=== PATIENT | female | born 1985 | race Caucasian/White ===

== ENCOUNTER 2019-02-16 07:10 | Emergency (ER) | payer MEDICARE, MEDICAID, SELFPAY ==
[2019-02-16 07:16] VITALS: BP 138/91; PULSE 75; RESP 14; TEMP 36.8; O2SAT 95
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
[2019-02-16] MEDS: Ibuprofen 800 MG TAB PO (07:28)
[2019-02-16] MEDS: Acetaminophen 500 MG TAB 1000 MG PO (07:28)
[2019-02-16] MEDS: Lidocaine 5% Patch 1 PATCH TP (07:29)
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
== END 2019-02-16 08:41 | disposition home or self-care (01) ==
LOC: ER 08:24
PROVIDERS: Emergency Provider Emergency Medicine
DX: M25.512 Pain in left shoulder (principal); G89.29 Other chronic pain; Z87.828 Personal history of other (healed) physical injury and trauma
CPT/HCPCS: 99284; 73030; 73200; L3650

== ENCOUNTER 2020-03-16 13:30 | Emergency (ER) | payer MEDICARE, MEDICAID, SELFPAY ==
[2020-03-16 13:35] VITALS: BP 134/61; PULSE 77; RESP 16; TEMP 36.7; O2SAT 99
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
[2020-03-16] MEDS: predniSONE 20 MG TAB 60 MG PO (14:05)
== END 2020-03-16 14:15 | disposition home or self-care (01) ==
PROVIDERS: Emergency Provider Emergency Medicine
DX: M75.32 Calcific tendinitis of left shoulder (principal)
CPT/HCPCS: 99283; J7512

== ENCOUNTER 2020-05-03 10:27 | Emergency (ER) | payer MEDICARE, MEDICAID, SELFPAY ==
[2020-05-03] VITALS (38 sets, daily range): BP systolic 107–142; BP diastolic 57–100; PULSE 46–74; RESP 11–22; TEMP 36.9; O2SAT 97–100
--- NOTE | 2020-05-03 10:30 | RT.EKG_ITS ---
APPROVED REPORT Exam: Resting ECG Patient Location: E HR:61 bpm ECG Measurements Heart Rate 61 AXIS DE 163 P 71 QRSd 90 QRS 74 QT 427 T 69 QTc 430 Conclusion Sinus rhythm...normal P axis, V-rate 60- 99 I have reviewed and interpreted ECG and agree with software generated interpretation.
--- NOTE | 2020-05-03 10:32 | W.ED.GENAD ---
Discharge Plan Disposition Patient Disposition: HOME Condition: Improving Discharge Details Clinical Impression: Dizziness, Gastritis, History of gastroesophageal reflux (GERD) Primary Care Provider: María Delacruz ED Provider: Dyan Camejo Home Meds and New Rx's Prescriptions: New sucralfate [Carafate] 1 gram tablet 1 gm PO QACHS Qty: 30 RF: 0 famotidine [Pepcid] 20 mg tablet 20 mg PO DAILY Qty: 14 RF: 0 Continued cholecalciferol (vitamin D3) [Vitamin D3] 2,000 unit Tablet 2,000 unit PO DAILY RF: 0 Discharge Instructions Instructions: Gastritis (ED), Dizziness (ED) Additional Instructions: Drink plenty of fluids and get plenty of rest. Your prescriptions have been sent electronically to your pharmacy. Call the pharmacy to make sure your prescriptions are ready before pickup. Take the prescriptions as directed. Take the Pepcid and Carafate as directed. Call the general surgery office today to schedule a follow-up appointment for reevaluation in the next week and for consideration for outpatient upper endoscopy for further evaluation of your gastritis and to rule out a possible peptic ulcer. Return immediately to the emergency department if you develop any worsening or new concerning symptoms. Referrals: Carolyne Johns DO [OSTEOPATHIC DOCTOR] - Discharge Data Discharge Physician: yDan Camejo Medical Decision Making 34-year-old female who is a tobacco smoker with a history of GERD who presents with lightheadedness for 2 months and burning chest and epigastric pain, belching and gagging when drinking water for the past 2 weeks. EKG on arrival notes a rate of 61, sinus, no STEMI, nondiagnostic. Vitals within normal limits. Lungs clear. She has tenderness across the epigastrium, right upper quadrant, left upper quadrant but without rigidity or guarding. No focal deficits. Orthostats done at bedside and negative. Differential diagnosis includes dehydration, electrolyte abnormality, arrhythmia, GERD, PUD, gastritis, PE, etc. Will place an IV, bolus IV fluids, screening labs, CT head to rule out acute neurologic process, CT chest abdomen and pelvis to rule out PE or acute GI abnormality. We will also give a dose of Pepcid and Carafate and reassess. She has an allergy to lidocaine so we will hold on GI cocktail. CT head negative. CT chest negative. CT abdomen notes some thickening of the gastric wall which may be seen in gastritis. Patient was able to eat and drink here and felt much better and denied any dizziness or pain at this time. Patient is requesting to go home. She states she has had a previous reaction to Prilosec in the past. Prescription for Pepcid and Carafate sent to her pharmacy electronically. Patient placed on surgery follow-up list for reevaluation and consideration for upper endoscopy if symptoms not improve or worsen. Usual and customary return precautions given prior to discharge. Medical Records Medical records reviewed: Yes I reviewed the patient's medical records. Imaging Data Radiologic Study: Radiologist's impression: CT HEAD WO CLINICAL HISTORY: dizziness, r/o acute disease. TECHNIQUE: Imaging Protocol: Axial computed tomography images with coronal and sagittal reformatted images were created and reviewed COMPARISON: No exams were available for comparison FINDINGS: The ventricular system is normal in appearance. No evidence of acute intracranial hemorrhage, mass effect, or midline shift. The orbital structures are unremarkable. The temporal bone structures appear intact. Calvarium: Normal. Visualized Paranasal sinuses/Mastoids: Clear. IMPRESSION: Normal cranial CT. CT CHEST PE ABD PELVIS W TECHNIQUE: CT angiography of the chest, was performed with bolus infusion of 100 cc of Omnipaque 350 followed by scanning of the abdomen and pelvis. Axial CT angiography was performed with multi-slice acquisition and multi-planar and/or 3D reconstructions. COMPARISON: No exams were available for comparison FINDINGS: The lungs are clear. No pleural effusion. No evidence of pulmonary embolic disease. No thoracic aortic dissection or aneurysm. Major branches of the thoracic aorta appear normal. No pleural effusion. No mediastinal or hilar adenopathy. Tracheobronchial tree appears intact. There is question diffuse gastric wall thickening, this is questionable finding due to underdistention but the possibility of gastritis is not excluded. Please correlate clinically. No focal hepatic abnormality seen apart from a few low-attenuation subcentimeter masses with appearance consistent with cysts. Gallbladder and bile ducts are CT normal. Pancreas is unremarkable. Spleen shows unremarkable early arterial phase pattern of enhancement. There are tiny bilateral nonobstructing renal calculi. Otherwise the kidneys appear normal. No abdominal aortic aneurysm or dissection. Major branches of the abdominal aorta appear normal. No abdominal or pelvic adenopathy. Appendix is not specifically visualized but there is no evidence of appendicitis or diverticulitis.. No significant abdominal wall hernia. No focal bowel pathology. Bushwalking Guide structures are unremarkable with an IUD in place in the uterine midline. IMPRESSION: Question gastric wall thickening which could indicate gastritis. Otherwise no evidence of acute abnormality of the chest, abdomen or pelvis. Nonobstructing renal calculi are noted bilaterally. Lab Data Lab results reviewed: Yes I reviewed the patient's lab results. Labs: Laboratory Tests Range/Units 05/03/20 05/03/20 05/03/20 10:34 10:40 10:40 WBC (4.4-10.8) 10^3/uL 9.46 RBC (3.93-5.22) 10^6/uL 4.86 Hgb (11.2-15.7) g/dL 14.9 Hct (36.0-46.0) % 44.6 MCV (80-95) fL 91.8 MCH (27.0-33.0) pg 30.7 MCHC (32.0-36.0) % 33.4 RDW (11.7-14.6) % 12.5 Plt Count (130-400) 10^3/uL MPV (8.0-11.0) fL 10.3 Immature Gran % 0.2 Neutrophils % 56.0 Lymphocytes % 35.9 Monocytes % 4.0 Eosinophils % 3.5 Basophils % 0.4 Nucleated RBC % % 0 Absolute Neutrophils (1.2-6.7) 10^3/uL 5.29 Absolute Lymphocytes (1.2-3.4) 10^3/uL 3.40 Absolute Monocytes (0.1-0.8) 10^3/uL 0.38 Absolute Eosinophils (0.0-0.7) 10^3/uL 0.33 Absolute Basophils (0.0-0.2) 10^3/uL 0.04 Sodium (136-145) mmol/L 141 Potassium (3.5-5.1) mmol/L 3.2 L Chloride (98-107) mmol/L 101 Carbon Dioxide (21.0-32.0) mmol/L 31.6 Anion Gap (3-11) mmol/L 8.4 BUN (7-18) mg/dL 7 Creatinine (0.55-1.02) mg/dL 0.9 Estimated GFR/1.73 m2 (mL/min/1.73m2) >= 60.00 Glucose (74-106) mg/dL 105 Calcium (8.5-10.1) mg/dL 9.2 Total Bilirubin (0.2-1.0) mg/dL 0.7 AST (15-37) U/L 15 ALT (14-59) U/L 25 Alkaline Phosphatase (46-116) U/L 93 Total Protein (6.4-8.2) g/dL 8.2 Albumin (3.4-5.0) g/dL 4.4 Urine Color (Yellow) Yellow Urine Clarity (Clear) Sl cloudy Urine pH (5-8) 7.5 Ur Specific [place] (1.005-1.025) 1.025 Urine Protein (Negative) mg/dL Negative Urine Ketones (Negative) mg/dL Negative Urine Blood (Negative) Small H Urine Nitrite (Negative) Negative Urine Bilirubin (Negative) Negative Urine Urobilinogen (Up TO 0.2) EU/dL 0.2 Ur Leukocyte Esterase (Negative) Negative Urine RBC (0-2) HPF 10-20 H Urine WBC (0-5) HPF 0-2 Ur Epithelial Cells (Negative) HPF Many Urine Crystals (Negative) HPF Negative Urine Bacteria (Negative) HPF Rare Urine Casts (Negative) LPF Negative Urine Mucus (Negative) Trace Ur Culture Indicated? No/sq. contamination Urine Glucose (Negative) mg/dL Negative ECG Data Attestation: I personally reviewed and interpreted this ECG (s) as follows: Interpretation: Rate of 61, sinus, no acute ST elevation or depression. CO 163 QRS 90. QTc 430. HPI General Mode of arrival: ambulatory. Date/Time Provider Initiated Documentation: 05/03/20 10:28. Limitations to Documentation: no limitations. Information obtained by: patient. HPI Narrative: Patient is a 34-year-old female who is a tobacco smoker presents to the ED with complaint of chronic lightheadedness for the past 2 months. Patient states the dizziness is constant but worse upon standing. She states this feels more consistent with lightheadedness rather than a spinning sensation. She states she does feel at rest and when sitting down but always worse upon standing or moving her head. She denies any headache, visual changes, vomiting, extremity weakness or numbness or speech changes. She states she has had poor appetite since she was little and states this is no worse than usual. She does admit to worsening of her GERD with indigestion, belching, and occasional burning chest and epigastric pain for the past 2 weeks. She states she is able to eat normally and drink coffee but is having trouble sipping water and states that it comes back. She denies known fever, palpitations, sharp chest pain, shortness of breath, change in bowel habits or urinary symptoms. She denies any new medications. She smokes tobacco and occasional marijuana but denies any alcohol use. She states she also has a Mirena and does not get periods. She denies any sources of bleeding such as hematemesis, hematuria, menorrhagia or hematochezia. Related Data Home Medications Medication Instructions Recorded Confirmed cholecalciferol (vitamin D3) 2,000 unit PO DAILY 02/16/19 05/03/20 [Vitamin D3] famotidine [Pepcid] 20 mg PO DAILY #14 tab 05/03/20 sucralfate [Carafate] 1 gm PO QACHS #30 tab 05/03/20 Previous Rx's Medication Instructions Recorded famotidine [Pepcid] 20 mg PO DAILY #14 tab 05/03/20 sucralfate [Carafate] 1 gm PO QACHS #30 tab 05/03/20 Allergies Allergy/AdvReac Type Severity Reaction Status Date / Time lidocaine AdvReac Unverified 05/03/20 10:44 General KIAH: 4 Review of Systems All systems reviewed & are unremarkable except as noted in HPI and below Constitutional Constitutional: Reports as per HPI, Denies chills and Denies fever(s) Eyes Eyes: Denies blurry vision ENT Ears, Nose, Mouth, and Throat: Reports dizziness, Denies sore throat and Denies throat swelling Cardiovascular Cardiovascular: Reports chest pain and Denies dyspnea Respiratory Respiratory: Denies cough and Denies dyspnea Gastrointestinal Gastrointestinal: Reports abdominal pain, Denies diarrhea, Reports nausea and Denies vomiting Genitourinary Genitourinary: Denies hematuria and Denies dysuria Musculoskeletal Musculoskeletal: Denies back pain and Denies numbness Integumentary/Breasts Skin/Breast: Denies lesions and Denies rash Neurologic Neurologic: Reports dizziness, Denies localized weakness and Denies numbness Allergic/Immunologic Allergic/Immunologic: Denies throat swelling [facility] Medical History (Updated 05/03/20 @ 13:51 by Dyan Camejo DO) GERD (gastroesophageal reflux disease) Surgical History (Updated 05/03/20 @ 11:36 by Dyan Camejo DO) Ganglion cyst of dorsum of right wrist Cystectomy History of bilateral tubal ligation Social History Smoking/Tobacco Use Status: Current every day Tobacco Type: cigarettes Smoking risk assessment performed?: Yes Alcohol Intake: never Drug use: Daily Substance use type: marijuana Do you feel safe at home: Yes Do you feel safe in your relationship?: Yes Exam Const General: cooperative and healthy appearing Orientation: alert and awake HENMT Head: normal to inspection Ears: hearing grossly normal bilaterally, external ears normal and TM's normal bilaterally General nose exam: external nose normal Face and sinus: normal facial exam Mouth: oral mucosae normal Teeth and gingiva: edentulous Throat: posterior oropharynx normal Eyes General: appearance normal, both eyes and all related structures Eyelids: eyelids normal Pupils: PERRL EOM: EOM intact bilaterally Neck Neck: normal visual inspection Lymphatic: no lymphadenopathy noted Chest Chest: normal inspection of the chest Resp Effort & Inspection: normal respiratory effort and able to speak in complete sentences Auscultation: clear to auscultation bilaterally Cardio Rate: regular rate Rhythm: regular rhythm GI Inspection: normal to inspection Palpation: soft, not firm, no guarding, no hepatosplenomegaly, no masses and tender in the epigastrum, in the LUQ and in the RUQ Auscultation: hypoactive bowel sounds Skin General skin exam: no rashes or lesions noted Neuro General: patient alert and patient awake Cranial Nerves: CN's II-XI intact bilaterally Cognition: normal cognition Speech: speech normal Gait: normal gait Motor: muscle tone normal throughout and strength 5/5 throughout Sensory Exam: no sensory deficits noted Extrem General: normal to inspection, full ROM and capillary refill normal Psych Appearance: grossly normal Mental Status: mental status grossly normal Speech and Movement: speech and movement normal Affect: normal affect Thought Process: normal
[2020-05-03 10:41] LABS: Bilirubin Negative (Negative); Blood Small (Negative); Clarity Sl Cloudy (Clear); Glucose Negative (Negative); Ketones Negative (Negative); Leukocyte Esterase Negative (Negative); Nitrite Negative (Negative); Specific Gravity 1.025 (1.005-1.025); Urobilinogen 0.2 EU/dL (Up TO 0.2); pH 7.5 (5-8)
[2020-05-03] MEDS: Normal Saline 1,000 ML 1000 ML IV ×2 (10:45→12:22)
[2020-05-03 10:47] LABS: Bacteria Rare HPF (Negative); C & S Indicated? No/Sq. Contamination; Casts Negative LPF (Negative); Crystals Negative HPF (Negative); Epithelial Cells Many HPF (Negative); Mucus Trace (Negative); WBC 0-2 HPF (0-5)
[2020-05-03 10:48] LABS: Abs Immature Grans 0.02 10^3/uL (0.0-0.06); Absolute Basophil Count 0.04 10^3/uL (0.0-0.2); Absolute Eosinophil Count 0.33 10^3/uL (0.0-0.7); Absolute Monocyte Count 0.38 10^3/uL (0.1-0.8); Absolute Neutrophil Count 5.29 10^3/uL (1.2-6.7); Basophils % 0.4; Eosinophils % 3.5; HCT 44.6 % (36.0-46.0); HGB 14.9 g/dL (11.2-15.7); Immature Grans % 0.2; Lymphocytes % 35.9; MCH 30.7 pg (27.0-33.0); MCHC 33.4 % (32.0-36.0); MCV 91.8 fL (80-95); MPV 10.3 fL (8.0-11.0); Nucleated RBC 0 %; RBC 4.86 10^6/uL (3.93-5.22); RDW 12.5 % (11.7-14.6); RDW-SD 42.3 fL; WBC 9.46 10^3/uL (4.4-10.8)
[2020-05-03 10:59] LABS: ALT 25 U/L (14-59); AST 15 U/L (15-37); Albumin 4.4 g/dL (3.4-5.0); Alkaline Phosphatase 93 U/L (46-116); Anion Gap 8.4 mmol/L (3-11); BUN 7 mg/dL (7-18); Bilirubin, Total 0.7 mg/dL (0.2-1.0); CO2 31.6 mmol/L (21.0-32.0); CREATININE 0.9 mg/dL (0.55-1.02); Calcium 9.2 mg/dL (8.5-10.1); Chloride 101 mmol/L (98-107); Glucose 105 mg/dL (74-106); Potassium 3.2 mmol/L (3.5-5.1); Sodium 141 mmol/L (136-145); Total Protein 8.2 g/dL (6.4-8.2)
--- NOTE | 2020-05-03 11:00 | DI.CT_ITS ---
EXAM: CT CHEST PE ABD PELVIS W TECHNIQUE: CT angiography of the chest, was performed with bolus infusion of 100 cc of Omnipaque 350 followed by scanning of the abdomen and pelvis. Axial CT angiography was performed with multi-slice acquisition and multi-planar and/or 3D reconstruc tions. COMPARISON: No exams were available for comparison FINDINGS: The lungs are clear. No pleural effusion. No evidence of pulmonary embolic disease. No thoracic aort ic dissection or aneurysm. Major branches of the thoracic aorta appear normal. No pleural effusion. No mediastinal or hilar adenopathy. Tracheobronchial tree appears intact. There is question diffuse gastric wall thickening, this is questionable finding due to underdistentio n but the possibility of gastritis is not excluded. Please correlate clinically. No focal hepatic abnormality seen apart from a few low-attenuation subcentimeter masses with appearan ce consistent with cysts. Gallbladder and bile ducts are CT normal. Pancreas is unremarkable. Spleen shows unremarkable early arterial phase pattern of enhancement. There are tiny bilateral nonobstructing renal calculi. Otherwise the kidneys appear normal. No abdominal aortic aneurysm or dissection. Major branches of the abdominal aorta appear normal. No a bdominal or pelvic adenopathy. Appendix is not specifically visualized but there is no evidence of a ppendicitis or diverticulitis.. No significant abdominal wall hernia. No focal bowel pathology. Flotation Tender Helper structures are unremarkable with an IUD in place in the uterine midline. IMPRESSION: Question gastric wall thickening which could indicate gastritis. Otherwise no evidence of acute abno rmality of the chest, abdomen or pelvis. Nonobstructing renal calculi are noted bilaterally. RADIATION DOSE DELIVERED: 1,265.21mGy.cm Total DLP 1,265.21mGy.cm Total DLP DATA REPOSITORY: All CT scans at this facility are submitted to the National Radiology Data Registry (NRDR) Dose Index Registry (DIR) with the [employer] ([employer]). RADIATION OPTIMIZATION: All CT scans at this facility use at least one of these dose optimization te chniques: automated exposure control; mA and/or kV adjustment per patient size (includes targeted exa ms where dose is matched to clinical indication); or iterative reconstruction.
--- NOTE | 2020-05-03 11:00 | DI.CT_ITS ---
EXAM: CT HEAD WO CLINICAL HISTORY: dizziness, r/o acute disease. TECHNIQUE: Imaging Protocol: Axial computed tomography images with coronal and sagittal reformatted images were created and reviewed COMPARISON: No exams were available for comparison FINDINGS: The ventricular system is normal in appearance. No evidence of acute intracranial hemorrhage, mass effect, or midline shift. The orbital structures are unremarkable. The temporal bone structures appear intact. Calvarium: Normal. Visualized Paranasal sinuses/Mastoids: Clear. IMPRESSION: Normal cranial CT. RADIATION DOSE DELIVERED: 727.96mGy.cm Total DLP 727.96mGy.cm Total DLP DATA REPOSITORY: All CT scans at this facility are submitted to the National Radiology Data Registry (NRDR) Dose Index Registry (DIR) with the [employer] (ACR). RADIATION OPTIMIZATION: All CT scans at this facility use at least one of these dose optimization te chniques: automated exposure control; mA and/or kV adjustment per patient size (includes targeted exa ms where dose is matched to clinical indication); or iterative reconstruction.
[2020-05-03] MEDS: Sucralfate 1 GM TAB PO (11:20)
[2020-05-03] MEDS: FAMOTIDINE 20 MG/50 ML BAG 200 MG IVPB (11:20)
[2020-05-03] MEDS: Potassium Chloride 20 MEQ TABCR 40 MEQ PO (11:33)
[2020-05-03] MEDS: Omnipaque 350 MG/ML 100 ML BTL IV (11:47)
[2020-05-03] MEDS: Normal Saline - Diluent 50 ML VIAL IV (11:47)
--- NOTE | 2020-05-03 14:22 | NUR.NOTE ---
referral faxed to surgery for follow up care regarding ER visit as requested by Dr. Camejo. Nursing Note:
== END 2020-05-03 14:10 | disposition home or self-care (01) ==
PROVIDERS: Emergency Provider Physician Assistant; PCP Nurse Practitioner Adult Health
DX: R42 Dizziness and giddiness (principal); K29.60 Other gastritis without bleeding; K21.9 Gastro-esophageal reflux disease without esophagitis
CPT/HCPCS: 71275; 74177; 80053; 81025; 93005; 96361; 96365; 99285; 70450; 81003; 81015; 85025; 93010; 99283; J3490

== ENCOUNTER 2022-02-03 14:51 | Emergency (ER) | payer MEDICARE, MEDICAID, SELFPAY ==
[2022-02-03 14:54] VITALS: BP 116/46; PULSE 54; RESP 18; TEMP 36.6; O2SAT 100
--- NOTE | 2022-02-03 15:00 | DI.RAD_ITS ---
Exam(s) XR SCAPULA LT EXAM: XR SCAPULA LT CLINICAL HISTORY: Pain. TECHNIQUE: 2D digital imaging was performed. COMPARISON: CR XR SHOULDER LT COMPLETE 2+V from 02/03/2022 FINDINGS: Two views: No evidence of scapular fracture. No scapular lesion evident. No adjacent rib findings. Ipsilatera l clavicle and acromion appear intact. Visualized coracoid process appears intact. No obvious degen erative changes in the glenohumeral joint. IMPRESSION: No significant radiographic findings in the scapula. DATA REPOSITORY: RADIATION DOSE DELIVERED:
--- NOTE | 2022-02-03 15:00 | DI.RAD_ITS ---
Exam(s) XR SHOULDER LT COMPLETE 2+V EXAM: XR SHOULDER LT COMPLETE 2+V CLINICAL HISTORY: Left shoulder blade pain. TECHNIQUE: 2D digital imaging was performed. COMPARISON: CR XR SHOULDER LT COMPLETE 2+V from 02/16/2019 FINDINGS: No evidence of acute fracture or dislocation. There are degenerative subarticular cyst in the latera l aspect humeral head again noted. Mild deformity at the greater tuberosity level may reflect prior fracture at this level. There is also a 3 millimeter calcific density in the soft tissues again note d just above the greater tuberosity which is probably consistent with calcific tendinitis. No other soft tissue calcifications evident. No glenohumeral joint space narrowing. Ipsilateral chromium an Silvestre and AC joint appear unremarkable. IMPRESSION: Greater tuberosity level findings as described above. Correlation with any prior injury at this leve l recommended. DATA REPOSITORY: RADIATION DOSE DELIVERED:
--- NOTE | 2022-02-03 15:10 | W.ED.GENAD ---
Discharge Plan Disposition Patient Disposition: Home Condition: Stable Discharge Details Clinical Impression: Calcific tendinitis of left shoulder Primary Care Provider: María Delacruz ED Provider: Kylie Nelson Home Meds and New Rx's Prescriptions: New cyclobenzaprine 10 mg tablet 10 mg PO TID PRN (Reason: muscle spasm) Qty: 7 0RF Rx Instructions: Please take 1 tablet up to 3 times daily as needed No Action sucralfate [Carafate] 1 gram tablet 1 gm PO QACHS Qty: 30 0RF famotidine [Pepcid] 20 mg tablet 20 mg PO DAILY Qty: 14 0RF Discharge Instructions Instructions: Tendinitis (ED) Additional Instructions: Alternate ice and heat. Please take the muscle relaxer as prescribed. You may try [id number] IcyHot or similar. Please take Tylenol or Ibuprofen with food every 4-6 hours as needed for pain and swelling. Follow up with primary care provider in 3-5 days. Return to ED sooner if any worsening or concerns. Increase oral fluids. Referrals: María Delacruz [Primary Care Provider] - 5 days Medical Decision Making No obvious deformity noted, she is tender with palpation over the scapula, no crepitus or step-off noted, I do suspect musculoskeletal or muscle pain however will order an x-ray to rule out underlying injury. Flexeril ordered for muscle relaxant. X-rays noted to have calcific tendinitis. Patient given Flexeril to go and a prescription for 7 tablets. Patient is allergic to lidocaine so injection was not done. I did consider lidocaine patches but however patient is allergic to lidocaine. Instructed to follow-up. This text was generated using BYTEGRIDation system, please disregard any oddities of phrase or misspellings. HPI General Mode of arrival: ambulatory. Date/Time Provider Initiated Documentation: 02/03/22 15:03. Limitations to Documentation: no limitations. Information obtained by: patient, RN notes reviewed and old records reviewed. HPI Narrative: -year-old female presents to the ER with chief complaint of left shoulder pain shoulder blade pain for over a week. She reports that it hurts to breathe, denies any cough fever sore throat or URI type symptoms. She is a smoker. She denies any known injury however she is a housekeeper/custodian/laundry worker. Past medical history includes GERD. she has been taking Tylenol with little to no relief. Related Data Home Medications Medication Instructions Recorded Confirmed famotidine 20 mg tablet (Pepcid) 20 mg PO DAILY #14 tabs 05/03/20 02/03/22 sucralfate 1 gram tablet (Carafate) 1 gm PO QACHS #30 tabs 05/03/20 02/03/22 cyclobenzaprine 10 mg tablet 10 mg PO TID PRN muscle spasm #7 02/03/22 tabs Previous Rx's Medication Instructions Recorded famotidine 20 mg tablet (Pepcid) 20 mg PO DAILY #14 tabs 05/03/20 sucralfate 1 gram tablet (Carafate) 1 gm PO QACHS #30 tabs 05/03/20 cyclobenzaprine 10 mg tablet 10 mg PO TID PRN muscle spasm #7 02/03/22 tabs Allergies Allergy/AdvReac Type Severity Reaction Status Date / Time lidocaine AdvReac Unverified 02/03/22 15:18 General Stated Complaint: Orthopedic KIAH: 4 Review of Systems All systems reviewed & are unremarkable except as noted in HPI and below Musculoskeletal Musculoskeletal: Reports as per HPI, Reports back pain, Denies deformity, Reports arthralgias, Denies loss of height, Denies numbness and Denies radiating pain into limb Neurologic Neurologic: Denies numbness PFSH All Active Problems (Updated 02/03/22 @ 16:03 by Kylie Nelson NP) Dizziness (Acute) Gastritis (Acute) History of gastroesophageal reflux (GERD) (Acute) Calcific tendinitis of left shoulder (Acute) Medical History GERD (gastroesophageal reflux disease) Surgical History Ganglion cyst of dorsum of right wrist Cystectomy History of bilateral tubal ligation Social History Smoking/Tobacco Use Status: Current every day Tobacco Type: cigarettes Smoking risk assessment performed?: Yes Alcohol Intake: never Drug use: Daily Substance use type: marijuana Do you feel safe at home: Yes Do you feel safe in your relationship?: Yes Exam Resp Effort & Inspection: normal respiratory effort, able to speak in complete sentences and no audible wheezes Auscultation: clear to auscultation bilaterally Cardio Rate: regular rate Rhythm: regular rhythm Heart Sounds: S1 normal and S2 normal Back/Spine/Pelvis Back: no CVA tenderness Cervical Spine: normal cervical lordosis Thoracic/Lumbar Spine: thoracic and lumbar spine normal to inspection Extrem General: normal to inspection and capillary refill normal Right upper extremity: normal to inspection and full ROM Left upper extremity: normal to inspection, normal capillary refill, no joint enlargement and shoulder/upper arm Details: tenderness Location: of the A-C joint, of the scapula and over the coracoid process and axillary nerve sensory function normal; no abrasions, no lacerations, no ecchymosis, no crepitus, no foreign bodies, no penetrating wound, no deformity and no unsual warmth Course Vital Signs Vital signs: Vital Signs Temperature 36.6 C 02/03/22 14:54 Pulse 54 L 02/03/22 14:54 Respiratory Rate 18 02/03/22 14:54 Blood Pressure 116/46 L 02/03/22 14:54 Pulse Oximetry 100 02/03/22 14:54 Temperature 36.6 C 02/03/22 14:54 Temperature Source Temporal Artery Scan 02/03/22 14:54 Pulse 54 L 02/03/22 14:54 Respiratory Rate 18 02/03/22 14:54 Respiratory Effort Non-Labored 02/03/22 14:58 Blood Pressure 116/46 L 02/03/22 14:54 Pulse Oximetry 100 02/03/22 14:54 Pain Level 10 02/03/22 14:54
[2022-02-03] MEDS: Cyclobenzaprine 10 MG TAB PO (15:19)
[2022-02-03] MEDS: Cyclobenzaprine 10 MG TAB, 3 TABS/BTL PO (16:12)
== END 2022-02-03 16:17 | disposition home or self-care (01) ==
PROVIDERS: Emergency Provider Registered Nurse Emergency; PCP Nurse Practitioner Adult Health
DX: M75.32 Calcific tendinitis of left shoulder (principal)
CPT/HCPCS: 99283; 73010; 73030

== ENCOUNTER 2024-04-01 09:49 | Emergency (ER) | payer MEDICARE, MEDICAID, SELFPAY ==
[2024-04-01 09:50] VITALS: BP 162/71; PULSE 69; RESP 17; TEMP 36.8; O2SAT 99
--- NOTE | 2024-04-01 09:55 | W.ED.GENAD ---
Discharge Plan Disposition Patient Disposition: Home Discharge Details Clinical Impression: Influenza A, Blood pressure elevated without history of HTN Primary Care Provider: María Delacruz ED Provider: Moisés Ku Home Meds and New Rx's Prescriptions: Continued albuterol sulfate 90 mcg/actuation HFA aerosol inhaler 2 puff INHALATION Q4H PRN Patient Comments: INHALE TWO PUFFS BY MOUTH EVERY 4 HOURS NEEDED FOR COUGH Discharge Instructions Additional Instructions: You are seen in the emergency department for your body aches. You are found to have influenza. Please rest at home and drink plenty of liquids. Please return to the emergency department if you develop difficulty breathing or if you pass out. Otherwise please follow-up with your primary care provider. Incidentally you are noted to have elevated blood pressure. Please follow-up with your PCP to reassess and determine whether or not you may benefit from treatment for high blood pressure. Insert pain Discharge Data Discharge Date/Time-TO BE ENTERED AT DEPARTURE: 04/01/24 11:41 HPI General Date/Time Provider Initiated Documentation: 04/01/24 09:54. HPI Narrative: MDM This is an overall well-appearing normothermic and not tachycardic 38-year-old female with elevated blood pressure found to be influenza positive for which patient will be discharged with empiric trial of expectant outpatient management. She is having some myalgias but given her overall well appearance I was not suspicious for rhabdomyolysis show I did not feel that she required assessment of her CK. No pain or proportion to suggest necrotizing soft tissue infection. Patient is tolerating p.o. and is soft nontender abdomen so not suspicious for appendicitis. No pain or proportion to suggest necrotizing soft tissue infection. Good range of motion in neck so not suspicious for retropharyngeal abscess. Uvula midline not consistent with peritonsillar abscess. Nontoxic and not compatible with bacterial tracheitis. Given that she is handling her secretions I am not suspicious for epiglottitis. No chest pain to suggest mediastinitis. Patient has not been around generator to suggest increased risk for carbon monoxide toxicity. Headache was not sudden onset to suggest subarachnoid hemorrhage. She has not been vomiting to suggest increased risk for subdural empyema. No recent chiropractic manipulation to suggest cervical arterial dissection. No hormone use to suggest increased risk for cerebral venous sinus thrombosis. Patient I discussed that if she could not tolerate p.o. or begin vomiting and did not stop or develop any shortness of breath that she should return to the emergency department. I advised her of elevated blood pressure and recommended PCP follow-up for blood pressure recheck. She understood her return indications. HPI This is a 38-year-old female with outpatient prescription for inhaler daily tobacco use arriving emergency department via private vehicle in the setting of respiratory symptoms that started yesterday. She endorses chills body aches cough nausea and diarrhea. She vomited once. She tells me she is taken no medications today. 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 She occasionally gets shortness of breath. She has had a cough and headache but no rhinorrhea nor sore throat. She denies IV drug use and daily alcohol. She smokes marijuana. She denies any chiropractic manipulation and hormone use. She reports that her muscles ache no recent falls. Exam General: Well-appearing in no acute distress speaking in complete sentences. Head: Normocephalic, atraumatic. Eye: Extraocular eye movements intact. No conjunctival injection. No scleral icterus. Ear, nose, mouth, throat: Grossly normal inspection. Normal voice, handling secretions normally. No significant posterior oropharynx erythema. Uvula midline. Neck: Trachea midline. Good range of motion in neck. Cardiovascular: Well-perfused distal extremities. Respiratory: Nonlabored respiration. Clear lungs bilaterally. Gastrointestinal: Nondistended abdomen. Soft nontender. Musculoskeletal: No edema. Moving all 4 extremities spontaneously. Skin: Normal for age and race, grossly normal temperature and turgor. No acute rash. Neurologic: Alert and appropriate, no apparent acute deficits. GCS 15. Related Data Home Medications ?Medication ?Instructions ?Recorded ?Confirmed albuterol sulfate 90 mcg/actuation 2 puff inhalation Q4H PRN 04/01/24 04/01/24 aerosol inhaler Allergies Allergy/AdvReac Type Severity Reaction Status Date / Time lidocaine AdvReac Other (See Unverified 04/01/24 09:57 Comment) General KIAH: 4 Medical Decision Making Quality:SDOH Health Related Social Needs: No Data to Display PFSH All Active Problems (Updated 04/01/24 @ 11:27 by Moisés Ku MD) Blood pressure elevated without history of HTN (Acute) Influenza A (Acute) History of gastroesophageal reflux (GERD) (Acute) Gastritis (Acute) Dizziness (Acute) Medical History GERD (gastroesophageal reflux disease) Surgical History Ganglion cyst of dorsum of right wrist Cystectomy History of bilateral tubal ligation Social History Smoking/Tobacco Use Status: Current every day Tobacco Type: cigarettes Smoking risk assessment performed?: Yes Alcohol Intake: never Drug use: Daily Substance use type: marijuana Do you feel safe at home: Yes Do you feel safe in your relationship?: Yes
[2024-04-01 09:56] VITALS: BP 162/71; PULSE 69; RESP 17; TEMP 36.8; O2SAT 99
[2024-04-01] MEDS: Acetaminophen 500 MG TAB 1000 MG PO (11:14)
[2024-04-01 11:22] LABS: COVID-19 PCR Negative (Negative); Influenza A PCR Positive (Negative); Influenza B PCR Negative (Negative); RSV PCR Negative (Negative)
[2024-04-01 11:23] LABS: Source Nasopharynx
== END 2024-04-01 11:41 | disposition home or self-care (01) ==
PROVIDERS: Emergency Provider Emergency Medicine; PCP Nurse Practitioner Adult Health
DX: J10.1 Influenza due to other identified influenza virus with other respiratory manifestations (principal); R03.0 Elevated blood-pressure reading, without diagnosis of hypertension; F17.210 Nicotine dependence, cigarettes, uncomplicated
CPT/HCPCS: 36415; 87637; 99283